=== PATIENT | female | born 1940 | race Caucasian/White ===

== ENCOUNTER 2022-04-28 01:58 | Emergency (ER) | payer OTHER ==
[~2022-04-28] VITALS: Ht 165.1 cm; Wt 52.6 kg
[2022-04-28 01:58] VITALS: BP 116/66
--- NOTE | 2022-04-28 02:01 | NUR ---
PT BROUGHT TO BED 8 VIA [facility] Addendum: 04/28/22 at 0208 by ELISABETH PT BROUGHT TO [facility] B
--- NOTE | 2022-04-28 02:18 | NUR ---
PT TO BED #11
--- NOTE | 2022-04-28 02:32 | NUR ---
Pt coming from home with unsteady gait. Pt c/o left lower leg pain that started today and rates pain 01/10. Pt states she took tylenol at 0130 for pain but had no affect. No trauma. Pt states pain happened abruptly. Did not fall or hit leg. No deformity noted. Uses a walker at home. Skin intact. Pt is A&Ox4. VSS. No chest pain and no sob. Denies n/v. NKA. Bed in lowest position.
--- NOTE | 2022-04-28 03:00 | NUR ---
surgical technologist at bedside.
--- NOTE | 2022-04-28 03:21 | NUR ---
Ultrasound being done at bedside.
[2022-04-28 03:29] LABS: BASOPHILS % (AUTO) 0.2 % (0.0-2.0); EOSINOPHILS # (AUTO) 0.2 K/uL (0-0.4); EOSINOPHILS % (AUTO) 2.5 % (0.0-4.0); HEMATOCRIT 35.3 % (36-48); HEMOGLOBIN 11.8 g/dL (12.0-16.0); LYMPHOCYTES # (AUTO) 1.3 K/uL (2.5-16.5); MEAN CORPUSCULAR HEMOGLOBIN 29 pg (27-31); MEAN CORPUSCULAR HGB CONC 33 g/dL (33-37); MEAN CORPUSCULAR VOLUME 86.7 fL (80-94); MONOCYTES # (AUTO) 0.5 K/uL (0.8-1.0); MONOCYTES % (AUTO) 8.5 % (1.7-9.3); NEUTROPHILS # (AUTO) 4.1 K/uL (1.8-7.7); NEUTROPHILS % (AUTO) 67.8 % (42.2-75.2); PLATELET COUNT (AUTO) 322 K/uL (140-450); RED BLOOD CELL COUNT(AUTO) 4.07 MIL/uL (4.20-5.40)
[2022-04-28 03:46] LABS: ANION GAP 10.1 (8-16); ASPARTATE AMINOTRANSFERASE 21 U/L (15-37); CARBON DIOXIDE 29.9 mmol/L (21-32); CHLORIDE 103 mmol/L (98-107); GLUCOSE 97 mg/dL (74-106); SODIUM SERUM 139 mmol/L (136-145); TOTAL BILIRUBIN 0.2 mg/dL (0.0-1.0); UREA NITROGEN, BLOOD 21 mg/dL (7-18)
--- NOTE | 2022-04-28 03:53 | NUR ---
MARENG completed and results given to Dr. Larson
--- NOTE | 2022-04-28 06:00 | NUR ---
Called Ultrasound to ask for update of ultrasound results. Was done at 0230 but results are not back yet. They stated they will call back. Dr. Neo phillips.
[2022-04-28 06:34] VITALS: BP 115/76
--- NOTE | 2022-04-28 06:34 | NUR ---
Patient discharged with v/s stable. Written and verbal after care instructions given and explained. Patient verbalized understanding. Wheel Chair Assisted with by caregiver. All questions addressed prior to discharge. Advised to follow up with PMD.
--- NOTE | 2022-04-28 06:45 | NUR ---
PATIENT ELOPED FROM FACILITY. DISCHARGE INSTRUCTIONS NOT GIVEN TO PATIENT. DR. RODRIGUEZ NOTIFIED.
== END 2022-04-28 06:45 | disposition left against medical advice (07) ==
LOC: MED 01:58
DX: M79.622 Pain in left upper arm (principal); I25.10 Atherosclerotic heart disease of native coronary artery without angina pectoris; Z86.73 Personal history of transient ischemic attack (TIA), and cerebral infarction without residual deficits
CPT/HCPCS: 36415; 71045; 80053; 83605; 83880; 84484; 85025; 85379; 87040; 93970; 99285; Q0092; 93005